=== PATIENT | female | born 2000 | race Caucasian/White ===

== ENCOUNTER 2020-03-30 21:48 | Emergency (ER) | payer BC, OTHER ==
[2020-03-30] MEDS ORDERED: Amoxicillin/Clavulanate K 875-125 MG Tab PO ONE (21:54)
--- NOTE | 2020-03-30 21:58 | EDM.PDOC ---
ED HPI GENERAL MEDICAL PROBLEM - General Stated Complaint: DOG BITE Time Seen by Provider: 03/30/20 21:50 Source of Information: Reports: Patient History Limitations: Reports: No Limitations - History of Present Illness INITIAL COMMENTS - FREE TEXT/NARRATIVE: Patient comes emergency department today with complaints of a dog bite to the left hand. Proximately half an hour prior to arrival the patient was bit on the left palmar surface of the hand on the thumb metacarpal sustaining a small puncture wound. The dog is not known to the patient although they are working on verifying rabies vaccination with the national van owner operator with the police were on the scene as well. She complains of pain to the metacarpal region of the left thumb. She is unsure of when her last tetanus shot was. - Related Data Allergies Allergy/AdvReac Type Severity Reaction Status Date / Time No Known Allergies Allergy Verified 03/01/20 14:35 Home Meds: Home Meds FLUoxetine [PROzac] 40 mg PO DAILY 03/01/20 [History] traZODone HCl [Trazodone HCl] 50 mg PO BEDTIME 03/01/20 [History] Amoxicillin/Potassium Clav [Augmentin 875-125 Tablet] 1 each PO BID #10 tablet 03/30/20 [Rx] Past Medical History Psychiatric History: Reports: Anxiety, Depression ED ROS GENERAL - Review of Systems Review Of Systems: Comprehensive ROS is negative, except as noted in HPI. ED EXAM, ANIMAL BITE - Physical Exam Exam: See Below Exam Limited By: No Limitations General Appearance: Alert, WD/WN, No Apparent Distress Respiratory/Chest: No Respiratory Distress Cardiovascular: Normal Peripheral Pulses, Regular Rate, Rhythm Peripheral Pulses: 2+: Radial (L), Radial (R) Extremities: No: Normal Inspection (On the palmar surface of the left hand on the first metacarpal there is a transverse puncture wound about a half a centimeter in length. There is no active bleeding. The area is soft. The patient is able to flex and extend at the MCP PIP IP joints of all fingers of the hand. Circulation is appropriate. She is able to flex and extend and rot ate at the wrist. Rest of the hand is atraumatic other than the small puncture wound in the palmar surface of the left hand.) Neurological: Alert, Oriented Psychiatric: Normal Affect, Normal Mood Skin Exam: Normal Color, Warm/Dry Course - Orders/Labs/Meds Orders: Active Orders 24 hr Category Date Time Status Vaccines to be Administered [RC] PER UNIT ROUTINE Care 03/30/20 22:29 Ordered Meds: Medications Discontinued Medications Generic Name Dose Route Start Last Admin Trade Name Michael PRN Reason Stop Dose Admin Amoxicillin/Clavulanate Potassium 1 tab 03/30/20 21:54 Augmentin 875 Mg/125 Mg PO 03/30/20 21:55 ONETIME ONE Diphtheria/Tetanus/Acell Pertussis 0.5 ml 03/30/20 22:29 Adacel IM 03/30/20 22:30 .ONCE ONE - Re-Assessments/Exams Free Text/Narrative Re-Assessment/Exam: 03/30/20 22:33 Augmentin given. Adacel updated. Dog national van owner operator verbally reports rabbies vaccine is up to date. Dog is in quarantine until verified by the police. Patient will see PCP if concerns of infection or not verified rabies vaccine. She is comfortable with the discharge plan and her questions answered. Departure - Departure Time of Disposition: 22:30 Disposition: Home, Self-Care 01 Clinical Impression: Dog bite Qualifiers: Encounter type: initial encounter Qualified Code(s): W54.0XXA - Bitten by dog, initial encounter - Discharge Information Instructions: Animal Bite, Adult, [id number] Additional Instructions: Soak the hand twice daily with warm water Tootie dish soap and Epsom salts until healed. Bacitracin and bandage until healed. Augmentin, 1 tablet twice daily for the next 5 days. Keep in contact with the police for monitoring of the dog. The national van owner operator is getting the paperwork for the rabies vaccine. Watch for signs of infection. Recheck if any concerns. - My Orders Last 24 Hours: My Active Orders 03/30/20 22:29 Vaccines to be Administered [RC] PER UNIT ROUTINE - Assessment/Plan Last 24 Hours: My Active Orders 03/30/20 22:29 Vaccines to be Administered [RC] PER UNIT ROUTINE
[2020-03-30] MEDS ORDERED: Diphtheria,Pertussis(Acell),Tetanus Vaccine 0.5 ML Syringe IM ONE (22:29)
== END 2020-03-30 22:42 | disposition home or self-care (01) ==
LOC: VM.ED 21:48
DX: S61.452A Open bite of left hand, initial encounter (principal); F41.9 Anxiety disorder, unspecified; F32.9 Major depressive disorder, single episode, unspecified; Z23 Encounter for immunization; Z79.899 Other long term (current) drug therapy; W54.0XXA Bitten by dog, initial encounter
CPT/HCPCS: 90471; 90715; 99283; A9270-GY